=== PATIENT | female | born 1990 | race Caucasian/White ===

== ENCOUNTER 2018-03-05 20:08 | Emergency (ER) | payer MEDICAID, SELFPAY ==
[2018-03-05 20:10] VITALS: BP 143/86; PULSE 89; RESP 15; TEMP 36.7; O2SAT 99; BMI 42.0
--- NOTE | 2018-03-05 21:40 | ED.VISSUMM ---
- ER Visit Summary Date of Service: 03/05/18 Chief Complaint: Left ankle injury History of Present Illness: The patient is a 27 F inversion injury left ankle 2 hours prior to arrival. Prepping for upcoming carnival, stepped on truck hitch when inverted. No falls or head injuries. Similar symptoms 2 months ago was stepping down from a ladder. She is from [place]. No history of gastric ulcers or kidney injuries. No medications taken prior to arrival. History of anxiety and depression. Physical Examination: General: Alert and oriented ?3, no acute distress HEENT: Normocephalic, atraumatic. Moist mucosa membranes Neck: supple, nontender. Cardiovascular: Regular rate and rhythm, no murmurs Respiratory: Normal breath sounds, symmetric, no distress Abdomen: Soft, nontender, nondistended Extremities: Left lower extremity: No knee tenderness. There is tenderness medial lateral malleolus with swelling. No deformities. No foot tenderness. Skin intact. Neurovascular intact distally. Neuro: no focal neurological deficits. Test Results: X-ray left ankle: No fracture dislocation. Emergency Department Course and Treatment: Patient protocol x-rays in triage, reviewed negative for any fracture dislocation. This read by radiology. Patient placed in Aircast crutches, started on NSAIDs. Rice therapy discussed. Discussed the persistent symptoms over the next week she may need a repeat x-ray. Treatment Plan: [] Disposition: Discharge Impression: Left ankle sprain This note was generated with [employer] dictation software. It may contain incorrect words, spelling, and punctuation that were not noted in review of the chart prior to signing ED Disposition - Plan for ED Patient: Disposition: Home or Assisted Living Chief Complaint: Lower Extremity Injury Diagnosis: Left ankle sprain Instructions: ED Sprain Ankle W X Ray Prescriptions: Ibuprofen 600 mg PO 4X/DAY PRN #20 tablet PRN Reason: Pain Referrals: NOT,DEFINED [Primary Care Provider] - Ke Benites III, MD [STAFF PHYSICIAN] - 5-7 Days
[2018-03-05] MEDS: Ibuprofen 600 MG Tablet PO (22:00)
[2018-03-05 22:09] VITALS: PULSE 91; RESP 14; O2SAT 100
== END 2018-03-05 22:10 | disposition home or self-care (01) ==
PROVIDERS: Emergency Provider Emergency Medicine
DX: S93.402A Sprain of unspecified ligament of left ankle, initial encounter (principal); X50.1XXA Overexertion from prolonged static or awkward postures, initial encounter; Y93.89 Activity, other specified; Y92.9 Unspecified place or not applicable; F32.9 Major depressive disorder, single episode, unspecified; F41.9 Anxiety disorder, unspecified; Z79.899 Other long term (current) drug therapy
CPT/HCPCS: 73610; 99284